=== PATIENT | female | born 1980 | race Caucasian/White ===

== ENCOUNTER 2020-03-27 05:00 | Emergency (ER) | payer MEDICAID, SELFPAY ==
[~2020-03-27] VITALS: Ht 167.6 cm; Wt 72.6 kg
[2020-03-27 05:08] VITALS: BP 141/73
--- NOTE | 2020-03-27 05:08 | NUR ---
JANICE ARZOLA IN TENT TO PERFORM MEDICAL EVALUATION
--- NOTE | 2020-03-27 05:10 | NUR ---
PT ABMULATED TO ED RESTROOM WITH STEADY GAIT
--- NOTE | 2020-03-27 05:15 | NUR ---
PT AMBULATED FROM ED RESTROOM TO ED BED 1 WITH STEADY GAIT
--- NOTE | 2020-03-27 05:28 | NUR ---
XRAY AT BEDSIDE.
--- NOTE | 2020-03-27 05:35 | NUR ---
39 Y/O FEMALE BIB SELF FOR C/O 02/08 "SEVERE" BODY PAIN X 2 WEEKS. PT DENIES HAVING ANY FEVER, SOB, OR COUGH. SHE PRESENTS WITH VSS. SHE IS AAOX 4, RESPIRATIONS WERE EVEN AND UNLABORED. HEART SOUNDS WERE EVEN AND REGULAR; S1 AND S2 PRESENT. ABDOMEN WAS SOFT, FLAT AND NON-TENDER. AMBULATES WITH STEADY GAIT. REPORTS TAKING NAPROXEN FOR PAIN WITH INEFFECTIVE RESULTS. PT WAS PLACED ON VOLTAGE INSPECTOR, PULSE OXIMETRY AND BP MONITORING. PHMX: ANEMIA NKA
--- NOTE | 2020-03-27 05:45 | NUR ---
LABS AND BLOOD CULTURES DRAWN. NOVEL, RSV, AND FLU SWABS COLLECTED. ALL TESTS TAKEN TO LAB.
--- NOTE | 2020-03-27 05:53 | NUR ---
RT AT BEDSIDE
[2020-03-27] MEDS ORDERED: HYDROcodone/APAP 5/325 MG 1 TAB TAB PO ONE (06:25)
[2020-03-27 06:27] LABS: BILIRUBIN,URINE NEGATIVE (NEGATIVE); BLOOD, URINE NEGATIVE (NEGATIVE); COLOR,URINE YELLOW (YELLOW); LEUKOCYTE ESTERASE ,URINE 1+ (NEGATIVE); NITRITE, URINE NEGATIVE (NEGATIVE); PH,URINE 6.5 (5.0-9.0); UGLUCOSE NEGATIVE (NEGATIVE)
[2020-03-27 06:31] LABS: ALBUMIN 3.7 g/dL (3.4-5.0); CARBON DIOXIDE 25.6 mmol/L (21-32); CREATININE 0.7 mg/dL (0.6-1.3); LACTATE DEHYDROGENASE 145 U/L (81-234); POTASSIUM 3.6 mmol/L (3.5-5.1); TOTAL BILIRUBIN 0.2 mg/dL (0.0-1.0)
[2020-03-27 06:32] LABS: BASOPHILS % (AUTO) 0.4 % (0.0-2.0); EOSINOPHILS % (AUTO) 0.3 % (0.0-4.0); HEMATOCRIT 33.8 % (36-48); HEMOGLOBIN 10.7 g/dL (12.0-16.0); LYMPHOCYTES # (AUTO) 4.3 K/uL (2.5-16.5); LYMPHOCYTES % (AUTO) 32.9 % (20.5-51.1); MEAN CORPUSCULAR HEMOGLOBIN 25 pg (27-31); MEAN CORPUSCULAR HGB CONC 32 g/dL (33-37); MEAN CORPUSCULAR VOLUME 77.6 fL (80-94); MONOCYTES # (AUTO) 1.2 K/uL (0.8-1.0); NEUTROPHILS # (AUTO) 7.5 K/uL (1.8-7.7); NEUTROPHILS % (AUTO) 57.4 % (42.2-75.2); PLATELET COUNT (AUTO) 337 K/uL (140-450); RED BLOOD CELL COUNT(AUTO) 4.35 MIL/uL (4.20-5.40); RED CELL DISTRIBUTION WIDTH 15.2 % (11.6-13.7); WHITE BLOOD COUNT (AUTO) 13.1 K/uL (4.8-10.8)
[2020-03-27 06:33] LABS: PROTHROMBIN TIME 9.7 secs (10.8-13.4)
[2020-03-27 06:36] LABS: APPEARANCE,URINE SLIGHTLY HAZY (CLEAR); RBC,URINE 0-5 /HPF (0-5)
[2020-03-27 06:38] LABS: WBC,URINE 0-5 /HPF (0-5)
[2020-03-27 06:50] LABS: RSV NEGATIVE (NEGATIVE)
[2020-03-27 06:57] LABS: D-DIMER < 100 ng/ml (0-400)
--- NOTE | 2020-03-27 06:59 | NUR ---
PT LAYING IN BED, IN NO ACUTE DISTRESS NOTED. RESPIRATIONS WERE EVEN AND UNLABORED. CONTINUES ON CARDIAC, BP AND PULSE OXIMETRY MONITORING. PT WAS ASSISTED TO A COMFORTABLE POSITION FOR COMFORT. BED LOCKED AND PLACED IN LOWEST POSITION.
[2020-03-27 07:10] VITALS: BP 106/60
[2020-03-27 07:10] LABS: C-REACTIVE PROTEIN QUANT < 0.2 mg/dL (0.0-0.9)
--- NOTE | 2020-03-27 07:10 | NUR ---
Patient discharged with v/s stable. Written and verbal after care instructions given and explained. Patient alert, oriented and verbalized understanding of instructions. Ambulatory with steady gait. All questions addressed prior to discharge. ID band removed. Patient advised to follow up with PMD. Rx of NORCO given. Patient educated on indication of medication including possible reaction and side effects. Opportunity to ask questions provided and answered. IV removed, catheter intact and site benign. Applied folded 4x4 gauze and tape to stop bleeding. Provided pt with copies of blood work.
[2020-03-27 07:30] LABS: FIBRINOGEN 202 mg/dL (200-400)
== END 2020-03-27 07:10 | disposition home or self-care (01) ==
LOC: MED 05:00
DX: M79.10 Myalgia, unspecified site (principal); B34.9 Viral infection, unspecified; Z20.828 Contact with and (suspected) exposure to other viral communicable diseases
CPT/HCPCS: 36415; 36600; 71045; 80053; 81001; 82550; 82728; 82803; 83605; 83615; 83880; 84484; 85025; 85379; 85384; 85610; 85730; 86140; 87040; 87086; 87420; 87804; 93005; 99285; U0003